=== PATIENT | male | born 1990 | race Caucasian/White ===

== ENCOUNTER 2017-11-16 11:51 | Inpatient (IN) ==
[2017-11-16] MEDS ORDERED: 0.9 % Sodium Chloride 1,000 ML IVC ONE (12:08)
--- NOTE | 2017-11-16 12:12 | Emergency Department Note ---
Disposition Clinical Impression: Unsteadiness, Numbness and tingling of both upper extremities Chest pain Qualifiers: Chest pain type: unspecified Qualified Code(s): R07.9 - Chest pain, unspecified Disposition: Admitted As Inpatient Condition: Good Forms: ED Satisfaction Letter General Adult HPI - General Chief complaint: ED Dizziness Stated complaint: Dizziness,MONY,Hypertension Time Seen by Provider: 11/16/17 12:01 Nursing Notes Reviewed: Yes Vital Signs Reviewed: Yes - History of Present Illness HPI Narrative: 27-year-old male presents emergency department with concern for lightheadedness over the last 3 weeks. Patient states that is constant. Patient complaining of some ringing in his ears. Patient does report intermittent lateral upper extremity numbness that is intermittent. Nothing today. Did report episode of having shortness of breath last night. States he went to the bathroom before that. Had difficulties going back to sleep. No recent travel. No unilateral leg swelling. No recent surgeries. No trauma. Has not passed out and lost consciousness. Patient states that he just feels unsteady on his feet. Pain Scale: 0 - Related Data Home Medications Medication Instructions Recorded Confirmed No Known Home Drugs 11/16/17 11/16/17 Allergies Allergy/AdvReac Type Severity Reaction Status Date / Time No Known Allergies Allergy Verified 11/16/17 14:50 All systems ED: reviewed and negative except as stated. Review of Systems: As Per HPI Constitutional: Reports: fever (Subjective) Cardiovascular: Reports: chest pain Respiratory: Reports: dyspnea. Denies: cough Gastrointestinal: Reports: nausea. Denies: abdominal pain, vomiting Musculoskeletal: Denies: back pain Integumentary: Denies: rash Neurological: Reports: numbness, paresthesias. Denies: headache Physical Exam - Head Head exam: atraumatic, normocephalic - Eye Eye exam: Present: EOMI. Absent: scleral icterus - ENT ENT exam: normal exam, normal oropharynx - Neck Neck exam: Present: trachea midline. Absent: tenderness, meningismus - Chest Chest inspection: Present: normal inspection, symmetric chest wall rise - Respiratory Respiratory exam: Present: normal lung sounds bilaterally. Absent: respiratory distress, accessory muscle use - Cardiovascular Cardiovascular exam: Present: regular rate, normal rhythm, normal heart sounds - Abdominal Exam Abdominal exam: Present: soft, Non-Tender. Absent: distention, guarding, rebound, rigidity - Extremities Exam Extremities exam: Absent: calf tenderness - Neurological Exam Neurological exam: Present: alert, oriented X3, CN II-XII intact, other (GCS 15) - Psychiatric Psychiatric exam: Present: normal affect, normal mood - Skin Skin exam: Present: warm, dry, intact. Absent: rash Course Vital Signs Temperature 98.0 F 11/16/17 11:52 Pulse Rate 74 11/16/17 11:52 Respiratory Rate 16 11/16/17 11:52 Blood Pressure 142/88 11/16/17 11:52 O2 Sat by Pulse Oximetry 99 11/16/17 11:52 Temperature 98.0 F 11/16/17 12:25 Pulse Rate 47 11/16/17 15:53 Respiratory Rate 18 11/16/17 15:53 Blood Pressure 131/82 11/16/17 15:53 O2 Sat by Pulse Oximetry 98 11/16/17 15:53 Oxygen Delivery Oxygen Delivery Room Air Medical Decision Making - MDM Narrative Medical decision making narrative: 27-year-old male presents to the emergency department with concern for unsteadiness for the last 3 weeks, numbness and tingling in the bilateral upper extremities for 1 week, shortness of breath and chest pain. Electrocardiogram did not reveal any evidence of ischemia. Chest x-ray was normal. Troponin was negative. Patient has good creatinine function. TCH was in normal limits as well. CT scan of the head was obtained and this does not reveal any evidence of any ischemia or bleed or any evidence of any acute intracranial abnormality. I spoke with neurology on the phone. I told him that there may be some concerns for possible multiple sclerosis even though symptoms were atypical for her. He said he agreed to follow patient on the floor. Patient was given aspirin here in the emergency department as well as meclizine and a liter of fluids. I spoke with the hospitalist on the phone and he agreed to accept the patient for admission. Discussed the chest pain aspect that I was concerned about as well as the neurologic aspect. [place] with family at bedside and agreed with plan for admission. Patient hemodynamically stable, still feeling uneasy and unsteady in the room with lightheadedness at time of admission. Chest X-Ray 11/16/17 12:07 IMPRESSION: No evidence of acute cardiopulmonary disease. D/ / 11/16/2017 14:04:34 Frederic Enamorado MD / [email or web address] Interpreting Provider: Frederic Enamorado MD Head CT 11/16/17 13:48 IMPRESSION: No acute intracranial abnormality. D/ / Zara James MD / Zara James MD Interpreting Provider: Zara James MD - Lab Data Result diagrams: 11/16/17 12:07 11/16/17 12:07 Lab Results 11/16/17 11/16/17 11/16/17 Range/Units 12:07 12:07 12:37 WBC 5.4 (4.3-11.1) K/mcL RBC 5.52 H (4.19-5.50) M/mcL Hgb 16.2 (12.9-16.9) g/dL Hct 47.1 (37.5-50.1) % MCV 85.3 (83.0-100.0) fL MCH 29.3 (28.0-33.3) pg MCHC 34.4 (31.6-35.5) g/dL RDW 11.9 (11.5-14.5) % Plt Count 247 (140-400) K/mcL MPV 9.8 (9.4-12.4) fL Immature Gran % 0.2 (0-4) % Seg Neutrophils % 65.7 % Lymphocytes % 18.5 % Monocytes % 9.3 % Eosinophils % 5.6 % Basophils % 0.7 % Neutrophils # 3.5 (1.6-8.9) K/mcL Lymphocytes # 1.0 (0.6-4.6) K/mcL Monocytes # 0.5 (0.0-1.3) K/mcL Eosinophils # 0.3 (0.0-0.6) K/mcL Basophils # 0.0 (0.0-0.2) K/mcL Sodium 138 (136-145) mEq/L Potassium 4.0 (3.5-5.1) mEq/L Chloride 106 (98-107) mEq/L Carbon Dioxide 26 (23-29) mEq/L BUN 10 (6-20) mg/dL Creatinine 0.75 (0.70-1.30) mg/dL Est GFR ( Amer) > 60 (> 60) Est GFR (Non-Af Amer) > 60 (> 60) BUN/Creatinine Ratio 13 (6-26) Glucose 98 (70-105) mg/dL Calculated Osmolality 285 (280-300) Calcium 9.3 (8.6-10.3) mg/dL Troponin I < 0.03 (< 0.04) ng/mL B-Natriuretic Peptide 21 (Less than 100) pg/mL TSH 0.859 (0.340-5.600) mcIU/mL - EKG Data EKG #1 EKG attestation: Yes I reviewed and interpreted this EKG. EKG results narrative: 12:00 Ventricular rate 61 bpm, AK interval 141 ms, QRS duration 94 ms, QT 357 ms, QTC 360 ms, normal axis. Sinus rhythm with a ventricular rate of 61 bpm. There is no evidence of any ischemic ST changes. No previous electrocardiogram to compare this study to. No evidence of Lizxc-Glvslpslk-Iusdw syndrome, Brugada syndrome, QT prolongation.
[2017-11-16 12:54] LABS: Basophils % 0.7 %; Eosinophils # 0.3 K/mcL (0.0-0.6); Eosinophils % 5.6 %; Hematocrit 47.1 % (37.5-50.1); Hemoglobin 16.2 g/dL (12.9-16.9); Immature Granulocytes % 0.2 % (0-4); Lymphocytes % 18.5 %; Mean Corpuscular HGB Conc 34.4 g/dL (31.6-35.5); Mean Corpuscular Hemoglobin 29.3 pg (28.0-33.3); Mean Corpuscular Volume 85.3 fL (83.0-100.0); Mean Platelet Volume 9.8 fL (9.4-12.4); Monocytes # 0.5 K/mcL (0.0-1.3); Monocytes % 9.3 %; Neutrophils # 3.5 K/mcL (1.6-8.9); Platelet Count 247 K/mcL (140-400); Red Blood Count 5.52 M/mcL (4.19-5.50); Red Cell Distribution Width 11.9 % (11.5-14.5); Segmented Neutrophils % 65.7 %
[2017-11-16 13:23] LABS: Troponin I < 0.03 ng/mL (< 0.04)
[2017-11-16 13:24] LABS: BUN/Creatinine Ratio 13 (6-26); Blood Urea Nitrogen 10 mg/dL (6-20); Calcium 9.3 mg/dL (8.6-10.3); Carbon Dioxide 26 mEq/L (23-29); Chloride 106 mEq/L (98-107); Glucose 98 mg/dL (70-105); Osmolality,Calculated 285 (280-300); Sodium 138 mEq/L (136-145); eGFR For African Americans > 60 (> 60); eGFR For Non-African Americans > 60 (> 60)
[2017-11-16 13:37] LABS: Thyroid Stimulating Hormone 0.859 mcIU/mL (0.340-5.600)
[2017-11-16] MEDS ORDERED: Aspirin 81 MG TAB.CHEW PO ONE (15:59)
--- NOTE | 2017-11-16 16:30 | Emergency Department Note ---
Disposition Clinical Impression: Unsteadiness, Numbness and tingling of both upper extremities Chest pain Qualifiers: Chest pain type: unspecified Qualified Code(s): R07.9 - Chest pain, unspecified Disposition: Admitted As Inpatient Condition: Good General Adult HPI - General Chief complaint: ED Dizziness Stated complaint: Dizziness,MONY,Hypertension Time Seen by Provider: 11/16/17 12:01 Source: patient Limitations: no limitations - History of Present Illness Pain Scale: 0 - Related Data Home Medications Medication Instructions Recorded Confirmed No Known Home Drugs 11/16/17 11/16/17 Allergies Allergy/AdvReac Type Severity Reaction Status Date / Time No Known Allergies Allergy Verified 11/16/17 14:50 Constitutional: Reports: fever (Subjective) Cardiovascular: Reports: chest pain Respiratory: Reports: dyspnea. Denies: cough Gastrointestinal: Reports: nausea. Denies: abdominal pain, vomiting Musculoskeletal: Denies: back pain Integumentary: Denies: rash Neurological: Reports: numbness, paresthesias. Denies: headache Past Medical History - Past Medical History Medical history: Reports: no medical history - Social History Smoking Status: Never smoker Physical Exam - General Limitations: no limitations Course Vital Signs Temperature 98.0 F 11/16/17 11:52 Pulse Rate 74 11/16/17 11:52 Respiratory Rate 16 11/16/17 11:52 Blood Pressure 142/88 11/16/17 11:52 O2 Sat by Pulse Oximetry 99 11/16/17 11:52 Temperature 98.0 F 11/16/17 16:47 Pulse Rate 56 11/16/17 16:47 Respiratory Rate 14 11/16/17 16:47 Blood Pressure 137/77 11/16/17 16:47 O2 Sat by Pulse Oximetry 100 11/16/17 16:47 Oxygen Delivery Oxygen Delivery Room Air Medical Decision Making - Lab Data Result diagrams: 11/16/17 12:07 11/16/17 12:07 Lab Results 11/16/17 11/16/17 11/16/17 Range/Units 12:07 12:07 12:37 WBC 5.4 (4.3-11.1) K/mcL RBC 5.52 H (4.19-5.50) M/mcL Hgb 16.2 (12.9-16.9) g/dL Hct 47.1 (37.5-50.1) % MCV 85.3 (83.0-100.0) fL MCH 29.3 (28.0-33.3) pg MCHC 34.4 (31.6-35.5) g/dL RDW 11.9 (11.5-14.5) % Plt Count 247 (140-400) K/mcL MPV 9.8 (9.4-12.4) fL Immature Gran % 0.2 (0-4) % Seg Neutrophils % 65.7 % Lymphocytes % 18.5 % Monocytes % 9.3 % Eosinophils % 5.6 % Basophils % 0.7 % Neutrophils # 3.5 (1.6-8.9) K/mcL Lymphocytes # 1.0 (0.6-4.6) K/mcL Monocytes # 0.5 (0.0-1.3) K/mcL Eosinophils # 0.3 (0.0-0.6) K/mcL Basophils # 0.0 (0.0-0.2) K/mcL Sodium 138 (136-145) mEq/L Potassium 4.0 (3.5-5.1) mEq/L Chloride 106 (98-107) mEq/L Carbon Dioxide 26 (23-29) mEq/L BUN 10 (6-20) mg/dL Creatinine 0.75 (0.70-1.30) mg/dL Est GFR ( Amer) > 60 (> 60) Est GFR (Non-Af Amer) > 60 (> 60) BUN/Creatinine Ratio 13 (6-26) Glucose 98 (70-105) mg/dL Calculated Osmolality 285 (280-300) Calcium 9.3 (8.6-10.3) mg/dL Troponin I < 0.03 (< 0.04) ng/mL B-Natriuretic Peptide 21 (Less than 100) pg/mL TSH 0.859 (0.340-5.600) mcIU/mL 11/16/17 Range/Units 16:08 WBC (4.3-11.1) K/mcL RBC (4.19-5.50) M/mcL Hgb (12.9-16.9) g/dL Hct (37.5-50.1) % MCV (83.0-100.0) fL MCH (28.0-33.3) pg MCHC (31.6-35.5) g/dL RDW (11.5-14.5) % Plt Count (140-400) K/mcL MPV (9.4-12.4) fL Immature Gran % (0-4) % Seg Neutrophils % % Lymphocytes % % Monocytes % % Eosinophils % % Basophils % % Neutrophils # (1.6-8.9) K/mcL Lymphocytes # (0.6-4.6) K/mcL Monocytes # (0.0-1.3) K/mcL Eosinophils # (0.0-0.6) K/mcL Basophils # (0.0-0.2) K/mcL Sodium (136-145) mEq/L Potassium (3.5-5.1) mEq/L Chloride (98-107) mEq/L Carbon Dioxide (23-29) mEq/L BUN (6-20) mg/dL Creatinine (0.70-1.30) mg/dL Est GFR ( Amer) (> 60) Est GFR (Non-Af Amer) (> 60) BUN/Creatinine Ratio (6-26) Glucose (70-105) mg/dL Calculated Osmolality (280-300) Calcium (8.6-10.3) mg/dL Troponin I < 0.03 (< 0.04) ng/mL B-Natriuretic Peptide (Less than 100) pg/mL TSH (0.340-5.600) mcIU/mL Attestation Statement - Attestation Attestation: I examined this patient and my medical decision-making was reviewed with the Resident Physician, Dr. Stock. I agree with the documented findings, disposition and treatment plan as described except to the extent set forth below. Patient is an otherwise healthy 27-year-old white male who presents the emergency permit today with a two-week history of constant vertigo. Symptoms have been causing him to be nauseous, difficulty with ambulation gradually worsening over the past 2 weeks as well as intermittent tinnitus. Patient denies any history of falls or trauma, no fevers or chills, no visual changes slurred speech or focal weakness. Patient states last night he was awakened from sleep in the middle the night with severe chest pain awoke was hyperventilating anxious diaphoretic and states within a few minutes the pain resolved and has not returned since that time but due to that episode along with this dizziness for 2 weeks he came in for evaluation today. I agree with patient's physical exam findings as documented. Vital signs are stable on arrival patient's in no acute distress. Patient is complaining of ongoing vertigo or room spinning sensation any does have slight nystagmus to the left on a physical exam. Neuro exam is within normal limits NIH score is 0 on arrival. Patient's in no acute distress. Patient's EKG is normal sinus rhythm without acute ischemia. Chest x-ray was unremarkable and all of his lab evaluation including thyroid testing troponin is all within normal limits. Patient went for CT head which was unremarkable as well. Patient's symptoms remained persistent in his serial neurologic exams over time if remains stable. We will patient would benefit from admission for further neurologic evaluation and MRI. Case was discussed with hospitalist as well as neurology who was consulate from the ED and both will continue to evaluate and manage the patient.
--- NOTE | 2017-11-16 16:47 | Internal Med History&Physical ---
Date of Encounter: 11/16/17 Time of Encounter: 16:45 Internal Medicine - H&P: HPI History of present illness: Mr. Stevenson is a 27 year old male with no significant past medical history or is on any medicines presents with progressive debilitating and worsening neurological symptoms pending neurological evaluation in the hospital. Symptoms first started 2 weeks ago when he developed dizziness that is described to be more for balancing, disequilibrium and issue. The symptoms of poor balancing has been persistent in the last 2 weeks with no improvement with time. He denies any transient period of improvement throughout this 2 weeks. In the last 3 days he developed progressive bilateral tingling from his elbow down to his fingers. Described that his arms feel heavy with decreased sensation particularly to pinprick on examination. He is able to ambulate and denies any loss of power in both upper and lower extremity but note that his upper extremity feels heavy due to paresthesia He denies any smoking denies any other medicines or neurological condition and the family. KG personally reviewed with rate of 61, normal sinus rhythm FINDINGS: BRAIN/VENTRICLES: There is no acute intracranial hemorrhage, mass effect or midline shift. No abnormal extra-axial fluid collection. The sterling-white differentiation is maintained without evidence of an acute infarct. There is no evidence of hydrocephalus. Basal cisterns are patent. ORBITS: The visualized portion of the orbits demonstrate no acute abnormality. SINUSES: The visualized paranasal sinuses and mastoid air cells demonstrate no acute abnormality. SOFT TISSUES/SKULL: No acute abnormality of the visualized skull or soft tissues. CT/CT head/brain wo con IMPRESSION: No acute intracranial abnormality. FINDINGS: Electrocardiographic monitor leads overlie the patient's chest. Minimal anterior wedging of lower thoracic vertebral body is likely developmental. Cardiopericardial silhouette is within normal limits. Pulmonary vasculature is normal. No focal confluent pulmonary infiltrate is identified. No evidence of pleural effusion or pneumothorax. XR/XR chest 2V IMPRESSION: No evidence of acute cardiopulmonary disease. Past Med Surg Social Fam HX - Past Medical History Medical history: no medical history - Social History Smoking Status: Never smoker Internal Medicine - H&P: Meds No Known Home Drugs 11/16/17 [History] 3 Allergy/AdvReac Type Severity Reaction Status Date / Time No Known Allergies Allergy Verified 11/16/17 14:50 All Systems PM: A 10-system review of systems was performed and is negative for pertinent findings except as documented above in the HPI. Review of systems: ROS 14 point review of systems reviewed as best as possible given presentation. Pertinent positive or negative as per HPI or otherwise reviewed as negative - Constitutional Vitals: Temp Pulse Resp BP Pulse Ox 98.0 F 47 18 131/82 98 11/16/17 12:25 11/16/17 15:53 11/16/17 15:53 11/16/17 15:53 11/16/17 15:53 Exam: General - AAO x 3 Psych - Appropriate affect/speech. No agitation Eyes - JOEL. Eye lids intact. No scleral icterus Neuro - gait not tested due to risk of fall. Does have paresthesia along the b/ l UE distal to the elbow with decrease pinprick sensation Heart - Sinus. RRR. S1 and S2 present. No added HS/murmurs appreciated. No elevated JVD appreciated. Lung - Adequate air entry b/l, No crackles/wheezes appreciated GI - Soft, non-tender. No hepatosplenomegaly/ascites. BS+ - No CVA/suprapubic tenderness or palpable bladder distension Skin - Intact. No rash/petechiae/ecchymosis. Warm extremities MSK - Joints with normal ROM. No joint swellings Internal Med - H&P Results - Labs CBC & Chem 7: 11/16/17 12:07 11/16/17 12:07 - Assessment and plan (1) Numbness and tingling of both upper extremities Current Visit: Yes Status: Acute Assessment and plan: We would start with MRI of the brain with and without contrast We will consult neurology for further evaluation and testing to include need for MRI of the spinal cord We will monitor his clinical course in the hospital closely given high risk for progressive neurological decline (2) Unsteadiness Current Visit: Yes Status: Acute Assessment and plan: Suspect to be related to the above. Pending MRI brain with contrast - Time Spent With Patient Total time spent is greater than 50% in coordination of care (as documented) at patient's floor/unit and/or counseling patient:
--- NOTE | 2017-11-16 16:50 | Electrocardiograph Report ---
[facility] Test Date: 2017-11-16 Pat Name: Luis Miguel Stevenson Department: 102 Room: 3B31 Gender: M [employer] Server: Alfredo : 1990 Requested By: Issac Stock Order Number: [id number] Reading MD: Bong Silvestre Measurements Intervals [place] Rate: 61 P: 78 VA: 141 QRS: 68 QRSD: 94 T: 69 QT: 357 QTc: 360 Interpretive Statements SINUS RHYTHM Electronically Signed On 11-16-2017 16:49:01 EDT by Bong Silvestre
[2017-11-16] MEDS ORDERED: Gadolinium Contrast Agent (WT Based) IV PRN (16:51)
[2017-11-16] MEDS ORDERED: Naloxone 0.4 MG/ML INJ IVP PRN (16:53)
--- NOTE | 2017-11-16 17:04 | Neurology - Consult Note ---
Date of Encounter: 11/16/17 Time of Encounter: 16:59 Assessment and Plan (1) Dizziness Current Visit: Yes Status: Acute 27 year old man with no significant PMH who developed acute onset of persistent dizziness, described as room spinning sensation, associated with tinnitus and balance difficulty as well as nausea at least at the beginning concerning vestibular dysfunction such as vestibular neuronitis however, he also developed multiple other complaints most concerning involving the paresthesia of his arms and hands bilaterally whch locate to the possible lesion to the cervical spine cord region. therefore it would necessary to assess possible central etiology. In this age group most concerned would be multiple sclerosis, [employer] vasculitis and CVA. Will order MRI of brain and add MRI of cervical spine as well. Will check ESR, LYNETTE, Lyme titer, RA. Will follow up when results available. History of Present Illness Chief complaint: dizziness and paresthesia HPI: Mr. Stevenson is a 27 year old male with no significant PMH who developed acute onset of persistent dizziness as well as intermittent headaches and now new onset of paresthesia involving his both arms and unsteady gait. He states that two weeks ago he woke up with dizziness, room spinning and disequillibrium sensation, associated initially with nausea and left ear tinnitus. The dizziness has been persistent and not getting better. Now he developed paresthesia involving his arms and hands bilaterally. When he walks he walks unsteady due to the dizziness. He works out in the [place] but did not have actual tick bite. headaches intermittently but not now. CT of head was reported normal. Past Med Surg Social Fam HX - Past Medical History Medical history: no medical history - Social History Smoking Status: Never smoker Medications and Allergies No Known Home Drugs 11/16/17 [History] 3 Allergy/AdvReac Type Severity Reaction Status Date / Time No Known Allergies Allergy Verified 11/16/17 14:50 All Systems: The remainder of the systems were reviewed and are negative Physical Examination - Vital Signs Vital Signs: Initial Vital Signs Temp Pulse Resp BP Pulse Ox 98.0 F 74 16 142/88 99 11/16/17 11:52 11/16/17 11:52 11/16/17 11:52 11/16/17 11:52 11/16/17 11:52 - Constitutional General appearance: comfortable - Neurologic Sensorimotor examination: intact (except some reduced pinprick to his hands and arms bilareally) Detailed motor examination: grossly full strength in all extremities Motor examination - right side: 5/5: deltoids, biceps, triceps, wrist flexion, wrist extension, land examiner, hip flexors, tibialis Anterior, quadriceps, toe extension (EHL), plantarflexion Motor examination - left side: 5/5: deltoids, biceps, triceps, wrist flexion, wrist extension, hip flexors, land examiner, quadriceps, tibialis Anterior, toe extension (EHL), plantarflexion Detailed sensory examination: intact (Grossly intact) Posture: other (None) Reflex and gait examination: other (Gait not tested) Reflexes: Biceps: 2+, Triceps: 2+, Brachioradialis: 2+, Patella: 2+, Achilles: 2 + Mental Status Examination: awake, alert, oriented to person, oriented to place, oriented to time, follows commands appropriately, answers questions appropriately, no agnosia, no aphasia, no aproxia Cranial nerve examination: PERRL, EOMI, visual palacio intact, corneal reflexes brisk symmetrically, sensory to face intact, mastication intact, no facial asymmetry is present, no dysarthria, hearing is intact symmetrically, soft palate elevates bilaterally upon phonation, gag reflex intact, flexes SCM and trapezius muscles symmetrically with full power, tongue protrudes midline, no atrophy or facial fasiculations present Results - Laboratory Findings CBC and BMP: 11/16/17 12:07 11/16/17 12:07 Abnormal lab findings: Abnormal lab results RBC 5.52 M/mcL (4.19-5.50) H 11/16/17 12:07 Consult Discharge Plan - Plan Referrals: NONE,PCP [Primary Care Provider] -
[2017-11-16] MEDS ORDERED: Ondansetron 4 MG/2 ML VIAL IVP PRN (22:49)
[2017-11-17 07:59] LABS: Folate 11.5 ng/mL (3.0-16.0)
--- NOTE | 2017-11-17 10:40 | Internal Med Progress Note ---
Date of Encounter: 11/17/17 Time of Encounter: 10:31 - Assessment and plan (1) Numbness and tingling of both upper extremities Current Visit: Yes Status: Acute Assessment and plan: patient presented w/ acute BUE parasthesias, as well as dizziness and disequilibrium x2-weeks. Etiology unclear Concern for vestibular disorder, or central lesion TSH 0.859, b12 381, Folate 11.5 MRI head/brain w/wo contrast obtained as well as MR c-spine Findings are as follows- No evidence of demyelinating disease within the brain or cervical spine. 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 MR imaging does not explain patient's symptoms. Does appear to have some component of anxiety. (2) Unsteadiness Current Visit: Yes Status: Acute Assessment and plan: see above (3) Anxiety Current Visit: Yes Status: Acute Assessment and plan: no h/o anxiety appears anxious this morning reports waking last night and feeling mildly short of breath, palpitations, anxious, and also reporting night sweats s/sx self limiting (4) LEROY (obstructive sleep apnea) Current Visit: Yes Status: Suspected Assessment and plan: Suspected obstructive sleep apnea Reported nighttime awakenings with shortness of breath, palpitations and anxiety Patient reports that he sleeps many hours remains fatigued Low risk for LEROY but given symptoms of follow with neurology in 1-2 weeks for further workup and evaluation - Time Spent With Patient Total time spent is greater than 50% in coordination of care (as documented) at patient's floor/unit and/or counseling patient: 25 - 35 minutes - Subjective Interval history: Patient seen and examined at bedside today. No acute changes overnight. Reports that heaviness in his arms have subsided. He does report having an episode of night sweats last night as well as palpitations and shortness of breath. He reports that he felt like he was having a panic attack however, he denies any history of anxiety - Constitutional Vitals: Temp Pulse Resp BP Pulse Ox 98.2 F 55 20 137/75 99 11/17/17 06:45 11/17/17 06:45 11/17/17 06:45 11/17/17 06:45 11/17/17 06:45 General appearance: Present: A&O X 3 - Head Head exam: Present: atraumatic, normocephalic - Eye Eye exam: Present: PERRL, conjuntiva pink, sclera anicteric Pupils: Present: PERRL - Neck Neck exam general surgery: Present: supple, trachea midline. Absent: lymphadenopathy - Respiratory Respiratory exam: Present: CTAB. Absent: accessory muscle use, rales, rhonchi, wheezes - Cardiovascular Cardiovascular exam: Present: RRR, +S1, +S2. Absent: diastolic murmur, gallop, rubs, systolic murmur - GI/Abdominal GI/Abdominal exam: Present: normal bowel sounds, soft, no peritoneal signs. Absent: distended, tenderness - Extremities Exam Extremities exam: Present: warm, radial pulses palpable and symmetrical. Absent : calf tenderness, cyanotic, pedal edema - Neurological Exam Neurological exam: Present: CN II-XII intact, oriented X3, no focal deficits. Absent: pronater drift, facial droop, speech deficit - Skin Skin exam: Present: dry, intact Internal Medicine: Result - Labs CBC & Chem 7: 11/16/17 12:07 11/16/17 12:07 Labs: Cardiac Enzymes 11/16/17 Range/Units 23:43 Troponin I < 0.03 (< 0.04) ng/mL - Impressions Impressions Brain MRI 11/16/17 16:51 IMPRESSION: No evidence of demyelinating disease within the brain or cervical spine. 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 Metallic foreign body within the left frontal scalp. D/ / Myron Francis MD / Myron Francis MD Interpreting Provider: Myron Francis MD Cervical Spine MRI 11/16/17 17:06 IMPRESSION: No evidence of demyelinating disease within the brain or cervical spine. 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 Metallic foreign body within the left frontal scalp. D/ / Myron Francis MD / Myron Francis MD Interpreting Provider: Myron Francis MD Consult Discharge Plan - Plan Referrals: NONE,PCP [Primary Care Provider] -
[2017-11-17 11:36] VITALS: BP 128/75
--- NOTE | 2017-11-17 12:51 | Neurology Progress Note ---
Date of Encounter: 11/17/17 Time of Encounter: 12:43 Assessment and Plan (1) Dizziness Current Visit: Yes Status: Acute Suspect vestibular neuronitis with acute vertiginous, nausea, tinnitus lasting 2 weeks with gradual improvement. non focal examination at present time. No nystagmus. MRI of brain and cervical normal. Could not explain his hand paresthesia though although it is resolved now. No further testing would be recommended at this time. Okay to discharge patient home with three days off work and rest at home. Subjective Principal diagnosis: dizziness Interval history: patient seen and examined. He is feeling better today. is able to ambulate no difficulty. No more dizziness. He completed MRI of brain and cervical spine which showed unremarkable studies. laboratory studies were normal, barring lyme' s titer. Objective - Constitutional Vitals: Temp Pulse Resp BP Pulse Ox 98.8 F 60 18 128/75 98 11/17/17 11:35 11/17/17 11:35 11/17/17 11:35 11/17/17 11:35 11/17/17 11:35 - Neurological Exam Sensorimotor examination: Present: intact (except some reduced pinprick to his hands and arms bilareally) Motor Examination: Present: grossly full strength in all extremities Motor examination - right side: 5/5: deltoids, biceps, triceps, wrist flexion, wrist extension, transportation security officer, hip flexors, tibialis Anterior, quadriceps, toe extension (EHL), plantarflexion Motor examination - left side: 5/5: deltoids, biceps, triceps, wrist flexion, wrist extension, hip flexors, transportation security officer, quadriceps, tibialis Anterior, toe extension (EHL), plantarflexion Sensation intact: Present: intact (Grossly intact) Posture: Present: other (None) Reflex and gait examination: other (Gait not tested) Mental Status Examination: Present: awake, alert, oriented to person, oriented to place, oriented to time, follows commands appropriately, answers questions appropriately, no agnosia, no aphasia, no aproxia Cranial nerve examination: Present: PERRL, EOMI, visual palacio intact, corneal reflexes brisk symmetrically, sensory to face intact, mastication intact, no facial asymmetry is present, no dysarthria, hearing is intact symmetrically, soft palate elevates bilaterally upon phonation, gag reflex intact, flexes SCM and trapezius muscles symmetrically with full power, tongue protrudes midline, no atrophy or facial fasiculations present Results - Laboratory Findings CBC and BMP: 11/16/17 12:07 11/16/17 12:07 Abnormal lab findings: Abnormal lab results RBC 5.52 M/mcL (4.19-5.50) H 11/16/17 12:07 Consult Discharge Plan - Plan Referrals: NONE,PCP [Primary Care Provider] -
--- NOTE | 2017-11-17 13:20 | Discharge Summary ---
- NOTES TO OUTPATIENT PROVIDER Notes to Outpatient Provider: Paresthesias of bilateral upper extremities. Etiology unclear. Neurological workup did not find any cause for symptoms. Symptoms limiting of now resolved. Instructed to follow-up with PCP within 1 week of discharge. Also, instructed to follow-up with neurology in 1-2 weeks of discharge. Orders not resulted at time of discharge: Pending orders 11/16/17 17:41 LYNETTE IgG [facility] rflx IFA Routine Lyme Disease Total Antibody Routine 11/16/17 23:16 EKG [ECG 12 lead ECG] [ECG] Stat 11/18/17 04:00 Basic Metabolic Panel AM 0400 Complete Blood Count [HEME] AM 0400 Date of Encounter: 11/17/17 Time of Encounter: 13:18 - Discharge Diagnosis (1) Numbness and tingling of both upper extremities Priority: Primary Status: Acute Assessment and Plan: patient presented w/ acute BUE parasthesias, as well as dizziness and disequilibrium x2-weeks. Etiology unclear Concern for vestibular disorder, or central lesion TSH 0.859, b12 381, Folate 11.5 MRI head/brain w/wo contrast obtained as well as MR c-spine Findings are as follows- No evidence of demyelinating disease within the brain or cervical spine. 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 MR imaging does not explain patient's symptoms. Does appear to have some component of anxiety. (2) Unsteadiness Priority: Secondary Status: Acute Assessment and Plan: see above (3) Anxiety Priority: Secondary Status: Acute Assessment and Plan: no h/o anxiety appears anxious this morning reports waking last night and feeling mildly short of breath, palpitations, anxious, and also reporting night sweats s/sx self limiting (4) LEROY (obstructive sleep apnea) Priority: Secondary Status: Suspected Assessment and Plan: Suspected obstructive sleep apnea Reported nighttime awakenings with shortness of breath, palpitations and anxiety Patient reports that he sleeps many hours remains fatigued Low risk for LEROY but given symptoms of follow with neurology in 1-2 weeks for further workup and evaluation Hospital course: Mr. Stevenson is a 27 year old male Please see assessment and plan for hospital course Discharge discussed with: patient, family, nurse, dairy nutrition consultant - Time Spent with Patient Total time spent providing and/or coordinating discharge services: Less than 30 minutes - Discharge Medications Home Medications: No Known Home Drugs 11/16/17 [History] Allergies/Adverse Reactions: 3 Allergy/AdvReac Type Severity Reaction Status Date / Time No Known Allergies Allergy Verified 11/16/17 14:50 Date of admission: 11/16/17 16:11 Primary care physician: PCP NONE Consults: 11/16/17 16:59 Consult to Occupational Therapy [CONS] Routine Comment: Evaluate, develop and implement POC Reason for Consult: ambulate and assess Does patient have active BEDREST order?: Yes Is patient medically & hemodynamically stable?: Yes Patient assessed for mobility or mobilized this visit?: Yes Consult to Physical Therapy [CONS] Routine Comment: Evaluate, develop and implement POC Reason for Consult: ambulate assess for placement need Does patient have active BEDREST order?: Yes Is patient medically & hemodynamically stable?: Yes Patient assessed for mobility or mobilized this visit?: Yes Discharging clinician: Jarvis Burdick Anticipated date of discharge: 11/17/17 - Constitutional Vitals: Temp Pulse Resp BP Pulse Ox 98.8 F 60 18 128/75 98 11/17/17 11:35 11/17/17 11:35 11/17/17 11:35 11/17/17 11:35 11/17/17 11:35 General appearance: Present: A&O X 3 - Head Head exam: Present: atraumatic, normocephalic - Eye Eye exam: Present: PERRL, conjuntiva pink, sclera anicteric Pupils: Present: PERRL - Neck Neck exam general surgery: Present: supple, trachea midline. Absent: lymphadenopathy - Respiratory Respiratory exam: Present: CTAB. Absent: accessory muscle use, rales, rhonchi, wheezes - Cardiovascular Cardiovascular exam: Present: RRR, +S1, +S2. Absent: diastolic murmur, gallop, rubs, systolic murmur - GI/Abdominal GI/Abdominal exam: Present: normal bowel sounds, soft, no peritoneal signs. Absent: distended, tenderness - Extremities Exam Extremities exam: Present: warm, radial pulses palpable and symmetrical. Absent : calf tenderness, cyanotic, pedal edema - Neurological Exam Neurological exam: Present: CN II-XII intact, oriented X3, no focal deficits. Absent: pronater drift, facial droop, speech deficit - Skin Skin exam: Present: dry, intact - Patient Status Disposition: Home, Self-Care Condition: Good Functional capacity at discharge: independent ambulation Overall status at discharge: patient is back to baseline - Discharge Instructions Follow Up With: NONE,PCP [Primary Care Provider] - - Diet and Activity Activity: increase activity as tolerated, resume usual activities as tolerated Diet: advance to your usual diet
--- NOTE | 2017-11-20 20:48 | Electrocardiograph Report ---
[address] [address] Test Date: 2017-11-16 Pat Name: Luis Miguel Stevenson Department: 113 Room: 3B Gender: M Import Coordinator: : 1990 Requested By: Triston Stubbs Order Number: [id number] Reading MD: Presley Garibay Measurements Intervals [place] Rate: 52 P: 31 [place]: 174 QRS: 33 QRSD: 97 T: 31 QT: 400 QTc: 379 Interpretive Statements SINUS BRADYCARDIA Electronically Signed On 11-20-2017 20:47:22 EDT by Presley Garibay
[2017-11-21 09:24] LABS: ANA IgG by ELISA NONE DETECTED (None Detected)
== END 2017-11-17 14:07 | disposition home or self-care (01) | DRG 93 ==
LOC: EMEROO 11:51 → 3BNU 11:51
PROVIDERS: ADMIT Family Medicine; ATTEND Family Medicine